=== PATIENT | female | born 1955 | race Hispanic/Latino ===

== ENCOUNTER 2018-10-02 08:50 | Outpatient (CLI) | payer SELFPAY ==
--- NOTE | 2018-10-02 09:08 | MMO ---
Bilateral MAMMO Bilat Screen DDI. CLINICAL HISTORY: Patient is 63 years old and is seen for screening. The patient has no family history of breast cancer. The patient has no personal history of cancer. VIEWS: The views performed were: bilateral craniocaudal and bilateral mediolateral oblique. FILMS COMPARED: The present examination has been compared to prior imaging studies performed at [facility] on 10/04/2017, and at [facility] on 09/27/2014, 09/29/2015 and 09/28/2016. This study has been interpreted with the assistance of computer-aided detection. MAMMOGRAM FINDINGS: There are scattered fibroglandular densities. There are no suspicious masses, suspicious calcifications, or new areas of architectural distortion. IMPRESSION: THERE IS NO MAMMOGRAPHIC EVIDENCE OF MALIGNANCY. A ROUTINE FOLLOW-UP MAMMOGRAM IN 1 YEAR IS RECOMMENDED. ACR BI-RADS Category 1 - Negative MAMMOGRAPHY NOTE: 1. A negative mammogram report should not delay a biopsy if a dominant of clinically suspicious mass is present. 2. Approximately 10% to 15% of breast cancers are not detected by mammography. 3. Adenosis and dense breasts may obscure an underlying neoplasm. Reported by: ROSY COSBY MD Electonically Signed: [id number]
== END 2018-10-02 08:51 | disposition home or self-care (01) ==
LOC: SCSMAMMO 08:50
PROVIDERS: ATTEND Internal Medicine
DX: Z12.31 Encounter for screening mammogram for malignant neoplasm of breast (principal)
CPT/HCPCS: 77067

== ENCOUNTER 2019-01-22 15:49 | Outpatient (CLI) | payer OTHER ==
--- NOTE | 2019-01-22 16:15 | RAD ---
Exam: 2 views lumbar spine HISTORY: Low back pain. Radiculopathy. COMPARISON: none FINDINGS: 5 lumbar type vertebra. Lumbar spine vertebral body height is maintained. No fracture. No s pondylolisthesis or spondylolysis. Mild hypertrophic changes of posterior elements at L3-L4, L4-L5 and L5-S1 IMPRESSION: Unremarkable lumbar spine radiograph series.
== END 2019-01-22 15:50 | disposition home or self-care (01) ==
LOC: BICRAD 15:49
PROVIDERS: ATTEND Internal Medicine
DX: M79.18 Myalgia, other site (principal)
CPT/HCPCS: 72100

== ENCOUNTER 2019-12-12 17:44 | Emergency (ER) | payer SELFPAY ==
[2019-12-12] MEDS ORDERED: Acetaminophen 500 MG TAB ONE (19:08)
[2019-12-12] MEDS ORDERED: Ketorolac Tromethamine 30 MG/ML VIAL ONE (19:08)
== END 2019-12-12 19:18 | disposition home or self-care (01) ==
LOC: ERS 17:44
DX: M54.42 Lumbago with sciatica, left side (principal); F17.210 Nicotine dependence, cigarettes, uncomplicated; M19.90 Unspecified osteoarthritis, unspecified site
CPT/HCPCS: 96372; 99283; J1885

== ENCOUNTER 2019-12-17 09:26 | Outpatient (CLI) | payer OTHER ==
--- NOTE | 2019-12-17 10:06 | RAD ---
XR Knee Rt 4 View STANDARD HISTORY: Right knee pain FINDINGS: No fracture or dislocation is identified. Degenerative changes are present manifested by osteophyte f ormation and joint space narrowing, most prominent in the medial tibiofemoral compartment.
--- NOTE | 2019-12-17 10:07 | RAD ---
XR Knee Lt 4 View STANDARD HISTORY: Left knee pain FINDINGS: No fracture or dislocation is identified. Degenerative changes are present. There is flocculent calci fication in the distal tibia which is most likely due to an enchondroma or old bone infarction.
--- NOTE | 2019-12-17 10:12 | RAD ---
XR Abdomen 1 View/KUB History: Abdominal pain. Comparison: None Findings: No dilated loops of large or small bowel. Moderate stool burden. High-grade facet arthrosis at L4/L5 and L5/S1. No abnormal calcifications projecting over the renal shadows. No acute osseous abnormality. Impression: 1. 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 2. No evidence for bowel obstruction. 3. No evidence for nephrolithiasis.
== END 2019-12-17 09:27 | disposition home or self-care (01) ==
LOC: BICRAD 09:26
PROVIDERS: ATTEND Internal Medicine
DX: R10.9 Unspecified abdominal pain (principal); M25.561 Pain in right knee; M25.562 Pain in left knee; M47.816 Spondylosis without myelopathy or radiculopathy, lumbar region; M19.09 Primary osteoarthritis, other specified site
CPT/HCPCS: 74018

== ENCOUNTER 2020-07-16 14:06 | Outpatient (CLI) | payer OTHER | END 2020-07-16 14:07 | disposition home or self-care (01) | LOC: BICULT 14:06 | PROVIDERS: ATTEND Nurse Practitioner Family | DX: M79.89 Other specified soft tissue disorders (principal) ==

== ENCOUNTER 2020-10-28 08:09 | Outpatient (CLI) | payer OTHER | END 2020-10-28 08:10 | disposition home or self-care (01) | LOC: BICRAD 08:09 | PROVIDERS: ATTEND Nurse Practitioner Family | DX: S89.91XA Unspecified injury of right lower leg, initial encounter (principal); M17.11 Unilateral primary osteoarthritis, right knee ==

== ENCOUNTER 2022-03-29 12:23 | Emergency (ER) | payer MEDICAID, SELFPAY ==
[2022-03-29 15:00] LABS: Bilirubin Negative (Negative); Blood, Urine Negative (Negative); Clarity Clear (Clear); Glucose, Urine (Dipstick) Normal (Negative); Ketone, Urine Negative (Negative); Leukocyte Negative Leu/uL (Negative); Nitrite Negative (Negative); Protein, Urine (Dipstick) Negative (Neg-Trace); Urobilinogen Normal mg/dL (Less than 2)
[2022-03-29] MEDS ORDERED: Ketorolac Tromethamine 30 MG/ML VIAL ONE (17:09)
== END 2022-03-29 17:37 | disposition home or self-care (01) ==
LOC: ERS 12:23
DX: M54.50 Low back pain, unspecified (principal); M62.830 Muscle spasm of back; F17.210 Nicotine dependence, cigarettes, uncomplicated
CPT/HCPCS: 81003; 96372; 99283; J1885

== ENCOUNTER 2022-04-05 07:37 | Outpatient (CLI) | payer OTHER | END 2022-04-05 07:38 | disposition home or self-care (01) | LOC: SCSMRI 07:37 | PROVIDERS: ATTEND Nurse Practitioner Family | DX: G89.29 Other chronic pain (principal); M47.816 Spondylosis without myelopathy or radiculopathy, lumbar region; M47.815 Spondylosis without myelopathy or radiculopathy, thoracolumbar region; M51.36 Other intervertebral disc degeneration, lumbar region; M48.062 Spinal stenosis, lumbar region with neurogenic claudication; M47.817 Spondylosis without myelopathy or radiculopathy, lumbosacral region | CPT/HCPCS: 72148 ==

== ENCOUNTER 2024-04-12 22:55 | Emergency (ER) | payer SELFPAY ==
[2024-04-12 23:22] LABS: Bacteria/HPF None Seen HPF (None Seen); Bilirubin Negative (Negative); Blood, Urine Trace (Negative); CAUTI Indications for Culture Pelvic or flank pain; Clarity Clear (Clear); Glucose, Urine (Dipstick) Normal (Negative); Ketone, Urine Negative (Negative); Leukocyte 250 Leu/uL (Negative); Nitrite Negative (Negative); Protein, Urine (Dipstick) Negative (Neg-Trace); RBC/HPF 0-3 HPF (0-3); Specific Gravity, Urine 1.013 (1.002-1.036); Squamous Epithelial 0-3 HPF (0-3); Urobilinogen Normal mg/dL (Less than 2); pH, Urine 5.5 (5.0-9.0)
[2024-04-12 23:23] LABS: Urine Culture Reflex No No
[2024-04-13] MEDS ORDERED: Ketorolac Tromethamine 30 MG (1 mL) VIAL ONE (01:55)
[2024-04-13] MEDS ORDERED: Morphine 4 MG/ML VIAL ONE ×2 (01:55→06:41)
[2024-04-13 02:24] LABS: #Basophils 0.05 10x3/uL (0.0-0.2); %Basophils 0.4 % (0.0-1.0); %Eosinophils 4.8 % (0.0-10.0); %Lymphocytes 26.9 % (21.0-51.0); %Monocytes 9.7 % (0.0-10.0); %Neutrophils 57.7 % (42.0-75.0); Hematocrit 36.1 % (36.0-47.0); Hemoglobin 11.7 g/dL (12.0-16.0); Mean Corpuscular HGB CONC 32.4 g/dL (32.0-36.0); Mean Corpuscular Volume 89.6 fL (78.0-98.0); Mean Platelet Volume 10.9 fL (7.4-10.4); Platelet Count 235 10x3/uL (130-400); RBC Distribution Width 12.9 % (11.5-14.5); Red Blood Cell (RBC) Count 4.03 mill/uL (4.20-5.40)
[2024-04-13 02:45] LABS: ALT (SGPT) 12 U/L (Less than 34); AST (SGOT) 33 U/L (11-34); Albumin 3.7 g/dL (3.1-4.5); Alkaline Phosphatase 105 U/L (40-110); Anion Gap 15 mmol/L (10-20); BUN (Urea Nitrogen) 12 mg/dL (9.8-20.1); Bilirubin, Total 0.3 mg/dL (0.3-1.2); Calc. Creatinine Clearance 0 mL/min (70-130); Calcium 9.5 mg/dL (7.8-10.44); Carbon Dioxide 22 mmol/L (23-31); Chloride 108 mmol/L (98-107); Estimated GFR 103; Globulin 3.4 g/dL (2.4-3.5); Glucose 81 mg/dL (80-115); Lipase 22 U/L (8-78); Potassium 4.3 mmol/L (3.5-5.1); Protein, Total 7.1 g/dL (5.8-8.1); Sodium 141 mmol/L (136-145)
[2024-04-13] MEDS ORDERED: Lidocaine 4% Patch ONE (06:55)
[2024-04-13] MEDS ORDERED: Dexamethasone 10 MG/ML VIAL ONE (06:55)
[2024-04-13] MEDS ORDERED: Iopamidol 370 76% 100 ML VIAL ONE (14:29)
== END 2024-04-13 08:13 | disposition home or self-care (01) ==
LOC: ERS 22:55
DX: M54.50 Low back pain, unspecified (principal); R10.31 Right lower quadrant pain; F17.210 Nicotine dependence, cigarettes, uncomplicated
CPT/HCPCS: 74177; 80053; 81001; 83690; 85025; 96374; 96375; 96376; J1100; J1885; J2270